=== PATIENT | female | born 1985 | race Caucasian/White ===

== ENCOUNTER 2020-02-29 16:18 | Emergency (ER) | payer BC ==
[~2020-02-29] VITALS: Ht 165.1 cm; Wt 50.3 kg
== END 2020-02-29 20:00 | disposition home or self-care (01) ==
LOC: ER 16:18
DX: B33.8 Other specified viral diseases (principal); Z20.5 Contact with and (suspected) exposure to viral hepatitis; Z20.6 Contact with and (suspected) exposure to human immunodeficiency virus [HIV]